=== PATIENT | female | born 1980 | race Two or more races ===

== ENCOUNTER 2017-11-20 16:18 | Emergency (ER) | payer MEDICAID ==
[~2017-11-20] VITALS: Ht 152.4 cm; Wt 58.0 kg
[2017-11-20] MEDS ORDERED: SODIUM CHLORIDE 0.9% 1,000 ML IV ONE (18:33)
[2017-11-20] MEDS ORDERED: KETOROLAC 30MG/ML VIAL IV STA (18:33)
[2017-11-20 22:46] VITALS: BP 115/75
== END 2017-11-20 22:47 | disposition home or self-care (01) ==
LOC: ER 16:18
DX: S82.302A Unspecified fracture of lower end of left tibia, initial encounter for closed fracture (principal); S82.832A Other fracture of upper and lower end of left fibula, initial encounter for closed fracture; W10.9XXA Fall (on) (from) unspecified stairs and steps, initial encounter; Y93.01 Activity, walking, marching and hiking; Y92.89 Other specified places as the place of occurrence of the external cause
CPT/HCPCS: 29515; 73610; 96361; 96374; 99285; J1885; J7030; Z7610